=== PATIENT | male | born 1975 | race African-American/Black ===

== ENCOUNTER 2024-10-12 04:06 | Emergency (ER) | payer OTHER ==
[2024-10-12 04:18] VITALS: BP 114/69; PULSE 67; RESP 20; BMI 25.2
[2024-10-12 07:50] LABS: URINE APPEARANCE CLEAR; URINE BILIRUBIN NEGATIVE (NEGATIVE); URINE COLOR YELLOW; URINE GLUCOSE (UA) NEGATIVE (NEGATIVE); URINE KETONE NEGATIVE (NEGATIVE); URINE LEUK ESTERASE NEGATIVE (NEGATIVE); URINE NITRITE NEGATIVE (NEGATIVE); URINE PROTEIN NEGATIVE (NEGATIVE); URINE UROBILINOGEN 0.2 mg/dL (0.2-1.0)
== END 2024-10-12 07:00 | disposition home or self-care (01) ==
LOC: JER 04:06
DX: N41.9 Inflammatory disease of prostate, unspecified (principal)
CPT/HCPCS: 36415; 81003; 87086; 87491; 87591; 87661; 99283-25

== ENCOUNTER 2024-11-06 21:34 | Emergency (ER) | payer OTHER ==
[2024-11-06 21:42] VITALS: BP 120/85; PULSE 80; RESP 20; TEMP 98.6; BMI 24.3
[2024-11-06] MEDS ORDERED: KETOROLAC TROMETHAMINE 30 MG/1 ML VIAL ONE (22:45)
[2024-11-06] MEDS: KETOROLAC TROMETHAMINE 30 MG/1 ML VIAL IM ONE (23:00)
== END 2024-11-06 23:13 | disposition home or self-care (01) ==
LOC: JER 21:34
PROC: 3E0233Z Introduction of Anti-inflammatory into Muscle, Percutaneous Approach (ICD-10-PCS; principal; 2024-11-06)
DX: R10.2 Pelvic and perineal pain (principal)
CPT/HCPCS: 99284-25